=== PATIENT | female | born 1985 | race Caucasian/White ===

== ENCOUNTER 2017-03-13 21:42 | Emergency (ER) | payer BC, OTHER ==
[~2017-03-13] VITALS: Ht 172.7 cm; Wt 51.0 kg
[2017-03-13 21:49] VITALS: Ht 172.7 cm; Wt 51.0 kg
[2017-03-13] MEDS ORDERED: ACETAMINOPHEN 325 MG TAB PO ONE (23:30)
== END 2017-03-13 22:30 | disposition left against medical advice (07) ==
LOC: FTE 21:42
DX: Z53.21 Procedure and treatment not carried out due to patient leaving prior to being seen by health care provider (principal)